=== PATIENT | female | born 1970 | race Caucasian/White ===

== ENCOUNTER 2017-03-28 10:24 | Inpatient (IN) | payer MEDICARE, OTHER ==
[~2017-03-28] VITALS: Ht 160 cm; Wt 77.1 kg
[2017-03-28] MEDS ORDERED: PLAQUENIL 200200 MG PO (15:43)
[2017-03-28] MEDS ORDERED: HUMIRA40 MG/0.8 SQ (15:43)
[2017-03-28] MEDS ORDERED: ARAVA20 MG PO (15:44)
[2017-03-28] MEDS ORDERED: TOPROL XL100 MG PO (15:44)
[2017-03-28] MEDS ORDERED: LOPRESSOR100 MG PO (15:44)
[2017-03-28] MEDS ORDERED: NORVASC 5 MG TAB5 MG PO (15:45)
[2017-03-28] MEDS ORDERED: CALCIUM500 MG PO (15:45)
[2017-03-28] MEDS ORDERED: KEPPRA500 MG PO (15:46)
[2017-03-28] MEDS ORDERED: FOSAMAX70 MG PO (15:46)
[2017-03-28] MEDS ORDERED: POTASSIUM CHLO10 MEQ PO (15:47)
[2017-03-28] MEDS ORDERED: VITAMIN D250000 UNIT PO (15:47)
[2017-03-28] MEDS ORDERED: ABILIFY2 MG PO (15:48)
[2017-03-28] MEDS ORDERED: LIPITOR TAB 1010 MG PO (15:48)
[2017-03-28] MEDS ORDERED: HYDROCHLOROTHIA25 MG PO (15:48)
[2017-03-28] MEDS ORDERED: BUSPAR 5MG TABLE5 MG PO (15:49)
[2017-03-28] MEDS ORDERED: PREMARIN0.625 MG PO (15:49)
[2017-03-28] MEDS ORDERED: CELEXA40 MG PO (15:49)
[2017-03-28] MEDS ORDERED: GLUCOPHAGE 500500 MG PO (15:50)
[2017-03-28] MEDS ORDERED: ALPRAZOLAM0.5 MG PO (15:50)
[2017-03-28] MEDS ORDERED: PROTONIX20 MG PO (15:50)
[2017-03-28] MEDS ORDERED: NEURONTIN800 MG PO (15:51)
[2017-03-28] MEDS ORDERED: OXYCODONE HCL E20 MG PO (15:52)
[2017-03-28] MEDS ORDERED: VITAMIN B-1000 MCG/M IM (15:56)
[2017-03-29 04:56] LABS: HEMOGLOBIN 12.3 gm/dl (12.3-15.3); RED BLOOD COUNT 4.68 M/UL (4.00-5.10); WHITE BLOOD COUNT 7.2 K/UL (4.5-11.0)
[2017-03-29 05:26] LABS: BUN/CREATININE RATIO 18 (0-10)
== END 2017-03-30 16:25 | disposition home or self-care (01) | DRG 392 ==
LOC: M/S 15:11
PROVIDERS: ADMIT Internal Medicine Infectious Disease
DX: K52.9 Noninfective gastroenteritis and colitis, unspecified (principal); M06.9 Rheumatoid arthritis, unspecified; E11.9 Type 2 diabetes mellitus without complications; I10 Essential (primary) hypertension; L93.0 Discoid lupus erythematosus; M19.90 Unspecified osteoarthritis, unspecified site; G40.909 Epilepsy, unspecified, not intractable, without status epilepticus; K21.9 Gastro-esophageal reflux disease without esophagitis; R16.1 Splenomegaly, not elsewhere classified; K83.8 Other specified diseases of biliary tract; Z87.11 Personal history of peptic ulcer disease; Z82.49 Family history of ischemic heart disease and other diseases of the circulatory system; Z82.61 Family history of arthritis; Z88.3 Allergy status to other anti-infective agents; Z88.2 Allergy status to sulfonamides; Z79.4 Long term (current) use of insulin
CPT/HCPCS: 36415; 74181; 80053; 80076; 82150; 82962; 83690; 85025; C9113; G0378; G0379; J2550; J7030; J7050